=== PATIENT | male | born 1955 | race African-American/Black ===

== ENCOUNTER 2018-07-02 14:49 | Inpatient (IN) | payer OTHER ==
[~2018-07-02] VITALS: Ht 175.3 cm; Wt 77.1 kg
[2018-07-02] MEDS ORDERED: SODIUM CHLORIDE 0.9% 1000ML BAG (SEPSIS BOLUS) IV ONE (15:00)
[2018-07-02 15:25] LABS: BG BASE EXCESS -4.6 mmol/L (-2.0-2.0); BG CARBOXYHEMOGLOBIN 0.7 % (0.5-1.5); BG DEOXYHEMOGLOBIN 4.8 % (0.0-5.0); BG FRACTION INSPIRED OXYGEN 21; BG HCO3 ACT 17.8 mmol/L (22.0-26.0); BG METHEMOGLOBIN 0.3 % (0.0-1.5); BG OXYGEN SATURATION 95.2 % (92.0-98.5); BG OXYHEMOGLOBIN 94.2 % (94.0-97.0); BG PCO2 25.5 mmHg (35.0-45.0); BG PH 7.461 (7.350-7.450); BG PO2 75.2 mmHg (75.0-100.0); BG SAMPLE SITE LEFT RADIAL; BG TOTAL HEMOGLOBIN 12.2 g/dL (12.0-18.0); BG VENT MODE ROOM AIR
[2018-07-02] MEDS ORDERED: ACETAMINOPHEN 650MG SUPP PR ONE (15:30)
[2018-07-02 15:41] LABS: HEMATOCRIT. 36.5 % (42.0-52.0); HEMOGLOBIN. 12.1 g/dL (14.0-18.0); MEAN CORPUSCULAR VOLUME 90.3 fL (80.0-94.0); MEAN PLATELET VOLUME 7.4 fl (7.4-10.4); PLATELET 221 x1000/uL (130-400); RED BLOOD CELL COUNT 4.05 mill/uL (4.7-6.1); RED CELL DISTRIBUTION WIDTH 12.3 % (11.6-14.6)
[2018-07-02 15:48] LABS: PROTHROMBIN TIME 10.3 sec (9.1-11.1)
[2018-07-02 15:49] LABS: CHLORIDE 100 mEq/L (98-107)
[2018-07-02] MEDS ORDERED: VANCOMYCIN 1 G PREMIX 200 ML IV ONE (16:00)
[2018-07-02] MEDS ORDERED: PIPERACILLIN/TAZ 3.375G PREMIX 50 ML IV ONE (16:00)
[2018-07-02 16:15] LABS: PLATELET ESTIMATE NORMAL
[2018-07-02 16:16] LABS: CLARITY URINE CLEAR (CLEAR); COLOR URINE YELLOW (YELLOW); KETONES URINE TRACE (NEGATIVE); LEUKOCYTE ESTERASE URINE NEGATIVE (NEGATIVE); NITRITE URINE NEGATIVE (NEGATIVE); OCCULT BLOOD URINE NEGATIVE (NEGATIVE); PH URINE 5.5 (4.5-8.0); PROTEIN URINE NEGATIVE (NEGATIVE); SPECIFIC GRAVITY URINE 1.026 (1.005-1.030); UROBILINOGEN URINE 0.2 E.U./dL (0.2-1.0)
[2018-07-02] MEDS ORDERED: SODIUM CHLORIDE 0.9% 1,000 ML IV ONE (20:35)
[2018-07-02 23:00] VITALS: BP 152/78
[2018-07-02] MEDS ORDERED: GUAIFENESIN 200MG/10ML SUGAR FREE UDC PO PRN (23:30)
[2018-07-02] MEDS ORDERED: ONDANSETRON HCL 4MG/2ML INJ IV PRN (23:30)
[2018-07-02] MEDS ORDERED: ACETAMINOPHEN 650MG/20.3ML UDC GT PRN (23:30)
[2018-07-02] MEDS ORDERED: HYDROCODONE/ACETAMINOPHEN 10/325MG TABLET PO PRN (23:30)
[2018-07-02] MEDS ORDERED: MAGNESIUM/ALUMINUM HYDROXIDE/SIMETHICONE 30ML UDC PO PRN (23:30)
[2018-07-02] MEDS ORDERED: ACETAMINOPHEN 650MG SUPP PR PRN (23:30)
[2018-07-02] MEDS ORDERED: NA PHOS,M-B/NA PHOS,DI-BA ENEMA 118ML PR PRN (23:30)
[2018-07-02] MEDS ORDERED: CLONIDINE 0.1MG TABLET PO PRN (23:30)
[2018-07-02] MEDS ORDERED: IPRATROPIUM/ALBUTEROL 0.5-3(2.5)MG/3ML NEB INH PRN (23:30)
[2018-07-02] MEDS ORDERED: ACETAMINOPHEN 325MG TABLET PO PRN (23:30)
[2018-07-02] MEDS ORDERED: HYDROCODONE/ACETAMINOPHEN 5/325MG TABLET PO PRN (23:30)
[2018-07-02] MEDS ORDERED: DOCUSATE SODIUM 100MG CAPSULE PO PRN (23:30)
[2018-07-02] MEDS ORDERED: DIPHENHYDRAMINE 50MG/ML VIAL IV PRN (23:30)
[2018-07-02 23:36] VITALS: BP 163/90
[2018-07-02] MEDS ORDERED: SPIR25TA6 MT (23:36)
[2018-07-02] MEDS ORDERED: HYDR-4133 MT ×2 (23:36)
[2018-07-02] MEDS ORDERED: POTA10TA2 MT (23:36)
[2018-07-02] MEDS ORDERED: LEVO25TA7 MT (23:36)
[2018-07-02] MEDS ORDERED: METO25TA6 MT (23:36)
[2018-07-02] MEDS ORDERED: CARB1TAB9 MT (23:36)
[2018-07-02 23:59] VITALS: BP 152/78
[2018-07-02] MEDS ORDERED: CEFTRIAXONE 1 G PREMIX 50 ML IV SCH (23:59)
[2018-07-03] VITALS (10 sets, daily range): BP systolic 126–186; BP diastolic 63–98
[2018-07-03] MEDS: ENOXAPARIN 40MG/0.4ML SYR SUBCUT SCH ×2 (00:37→20:16)
[2018-07-03] MEDS: AZITHROMYCIN 500 MG in DEXT 5% WATER 250 ML IV SCH ×2 (00:58→21:17)
[2018-07-03] MEDS: IPRATROPIUM/ALBUTEROL 0.5-3(2.5)MG/3ML NEB INH SCH ×4 (02:11→21:30)
[2018-07-03] MEDS: SODIUM CHLORIDE 0.9% INJ 3ML FLUSH IVF SCH ×3 (05:18→21:18)
[2018-07-03 06:57] LABS: HEMOGLOBIN. 11.9 g/dL (14.0-18.0); MEAN CORPUSCULAR HEMOGLOBIN 30.7 pg (28.0-32.0); MEAN CORPUSCULAR VOLUME 90.8 fL (80.0-94.0); MEAN PLATELET VOLUME 7.5 fl (7.4-10.4); PLATELET 188 x1000/uL (130-400); RED BLOOD CELL COUNT 3.86 mill/uL (4.7-6.1); RED CELL DISTRIBUTION WIDTH 12.3 % (11.6-14.6)
[2018-07-03 07:24] LABS: CHLORIDE 104 mEq/L (98-107)
[2018-07-03 07:54] LABS: LDL CHOLESTEROL 29 mg/dL (5-100)
[2018-07-03 07:55] LABS: HDL CHOLESTEROL 48 mg/dL (40-59)
[2018-07-03 08:26] LABS: CLARITY URINE TURBID (CLEAR); COLOR URINE DARK YELLOW (YELLOW); KETONES URINE 1+ (NEGATIVE); LEUKOCYTE ESTERASE URINE NEGATIVE (NEGATIVE); NITRITE URINE NEGATIVE (NEGATIVE); OCCULT BLOOD URINE TRACE (NEGATIVE); PROTEIN URINE 1+ (NEGATIVE); SPECIFIC GRAVITY URINE 1.038 (1.005-1.030); UROBILINOGEN URINE 0.2 E.U./dL (0.2-1.0)
[2018-07-03 09:10] LABS: *BARBITURATES SCREEN URINE NEGATIVE (NEGATIVE)
[2018-07-03 09:11] LABS: *AMPHETAMINES SCREEN URINE NEGATIVE (NEGATIVE); *BENZODIAZEPINES SCREEN URINE NEGATIVE (NEGATIVE); *COCAINE SCREEN URINE NEGATIVE (NEGATIVE)
[2018-07-03 09:14] LABS: CANNABINOID URINE SCREEN PRESUMTIVE POSITIVE (NEGATIVE); METHADONE URINE SCREEN NEGATIVE (NEGATIVE); OPIATES URINE SCREEN NEGATIVE (NEGATIVE); PHENCYCLIDINE URINE SCREEN NEGATIVE (NEGATIVE)
[2018-07-03] MEDS ORDERED: PIPE3.376 IV (14:30)
[2018-07-03] MEDS ORDERED: VANCOMYCIN 1 G PREMIX 200 ML IV SCH (16:00)
[2018-07-03] MEDS: PIPERACILLIN/TAZ 3.375G PREMIX 50 ML IV SCH ×2 (17:44→20:16)
[2018-07-03] MEDS ORDERED: LEVO137T2 MT (19:35)
[2018-07-03 20:21] LABS: PLATELET ESTIMATE NORMAL
[2018-07-03] MEDS ORDERED: CARBIDOPA/LEVODOPA 25/100MG TABLET PO SCH (22:00)
[2018-07-04] MEDS ORDERED: LEVOTHYROXINE SODIUM 137MCG TABLET PO SCH (07:30)
== END 2018-07-03 23:43 | disposition short-term general hospital (02) | DRG 871 ==
LOC: ER 14:49 → 5EST 18:24 → EDBEDREQTM 18:26 → EDBEDREQ 18:26 → ENRESERV 20:22
PROVIDERS: ADMIT Family Medicine; ATTEND Family Medicine
DX: A41.50 Gram-negative sepsis, unspecified (principal); J18.9 Pneumonia, unspecified organism; J44.0 Chronic obstructive pulmonary disease with (acute) lower respiratory infection; I10 Essential (primary) hypertension; E11.65 Type 2 diabetes mellitus with hyperglycemia; G20 Parkinson's disease; K40.90 Unilateral inguinal hernia, without obstruction or gangrene, not specified as recurrent; K44.9 Diaphragmatic hernia without obstruction or gangrene; N40.0 Benign prostatic hyperplasia without lower urinary tract symptoms; K76.0 Fatty (change of) liver, not elsewhere classified
CPT/HCPCS: 36415; 36600; 71045; 74176; 80061; 80305; 82375; 82805; 82962; 83605; 84145; 84484; 87077; 87186; 87804; 93005; 94640; 96361; 96365; 96367; 99291; J0456; J0696; J1650; J2543; J3370; J7030; J7050; J7060; J7620; A4315

== ENCOUNTER 2021-01-15 10:29 | Inpatient (IN) | payer MEDICARE, OTHER ==
[~2021-01-15] VITALS: Ht 167.6 cm; Wt 66.2 kg
[~2021-01-15 10:29] MED LIST: CARB1TAB9 MT; HYDR-4133 MT; LEVO137T2 MT; METO25TA6 MT; PIPE3.376 IV; POTA10TA2 MT; SPIR25TA6 MT
[2021-01-15] MEDS ORDERED: VANCOMYCIN 1 G PREMIX 200 ML IV ONE (11:00)
[2021-01-15] MEDS ORDERED: CEFTRIAXONE 1 G PREMIX 50 ML IV ONE ×2 (11:00)
[2021-01-15] MEDS ORDERED: SODIUM CHLORIDE 0.9% 1000ML BAG (SEPSIS BOLUS) IV ONE (11:00)
[2021-01-15] MEDS ORDERED: VANCOMYCIN 1 G PREMIX 200 ML IV SCH (11:00)
[2021-01-15 12:02] LABS: HEMATOCRIT. 26.9 % (42.0-52.0); HEMOGLOBIN. 9.2 g/dL (14.0-18.0); MEAN CORPUSCULAR HEMOGLOBIN 30.4 pg (28.0-32.0); MEAN CORPUSCULAR VOLUME 88.9 fL (80.0-94.0); MEAN PLATELET VOLUME 6.9 fl (7.4-10.4); PLATELET 236 x1000/uL (130-400); RED BLOOD CELL COUNT 3.02 mill/uL (4.7-6.1); RED CELL DISTRIBUTION WIDTH 14.8 % (11.6-14.6)
[2021-01-15 12:09] LABS: INR 1.1; PROTHROMBIN TIME 12.1 sec (9.6-11.0)
[2021-01-15 12:11] LABS: CHLORIDE 113 mEq/L (98-107)
[2021-01-15 12:33] LABS: BG BASE EXCESS -5.7 mmol/L (-2.0-2.0); BG CARBOXYHEMOGLOBIN 0.3 % (0.5-1.5); BG DEOXYHEMOGLOBIN 4.9 % (0.0-5.0); BG FRACTION INSPIRED OXYGEN 36; BG HCO3 ACT 19.9 mmol/L (22.0-26.0); BG METHEMOGLOBIN 0.3 % (0.0-1.5); BG OXYGEN SATURATION 95.1 % (92.0-98.5); BG OXYHEMOGLOBIN 94.5 % (94.0-97.0); BG PH 7.325 (7.350-7.450); BG PO2 86.8 mmHg (75.0-100.0); BG SAMPLE SITE RIGHT RADIAL; BG TOTAL HEMOGLOBIN 9.2 g/dL (12.0-18.0); BG VENT MODE NASAL CANNULA
[2021-01-15 13:06] LABS: PLATELET ESTIMATE NORMAL
[2021-01-15 17:06] LABS: CLARITY URINE CLEAR (CLEAR); COLOR URINE YELLOW (YELLOW); KETONES URINE NEGATIVE (NEGATIVE); LEUKOCYTE ESTERASE URINE NEGATIVE (NEGATIVE); NITRITE URINE NEGATIVE (NEGATIVE); OCCULT BLOOD URINE NEGATIVE (NEGATIVE); PH URINE 5.5 (4.5-8.0); PROTEIN URINE NEGATIVE (NEGATIVE); SPECIFIC GRAVITY URINE 1.015 (1.005-1.030); UROBILINOGEN URINE 0.2 E.U./dL (0.2-1.0)
[2021-01-15] MEDS ORDERED: ZOLPIDEM TARTRATE 5MG TABLET PO PRN (18:45)
[2021-01-15] MEDS ORDERED: MAGNESIUM/ALUMINUM HYDROXIDE/SIMETHICONE 30ML UDC PO PRN (18:45)
[2021-01-15] MEDS ORDERED: NOREPINEPHRINE 8 MG in DEXT 5% WATER 242 ML IV PRN (18:45)
[2021-01-15] MEDS ORDERED: ALBUTEROL 6.7GM HFA INHALER ORI PRN (18:45)
[2021-01-15] MEDS ORDERED: NITROGLYCERIN 0.4MG TABLET SL SL PRN (18:45)
[2021-01-15] MEDS ORDERED: NA PHOS,M-B/NA PHOS,DI-BA ENEMA 118ML PR PRN (18:45)
[2021-01-15] MEDS ORDERED: TRAMADOL 50MG TABLET PO PRN (18:45)
[2021-01-15] MEDS ORDERED: ACETAMINOPHEN 325MG TABLET PO PRN (18:45)
[2021-01-15] MEDS ORDERED: PIPERACILLIN/TAZ 3.375G PREMIX 50 ML IV NR (19:00)
[2021-01-15] MEDS ORDERED: DEXTROSE 50% WATER 50ML SYRINGE IV PRN (19:30)
[2021-01-15 19:35] LABS: T4 FREE 1.08 ng/dL (0.76-1.46)
[2021-01-15 19:46] LABS: FOLIC ACID (FOLATE) SERUM 13.1 ng/mL (>5.38)
[2021-01-15] MEDS: ENOXAPARIN 80MG/0.8ML SYR SUBCUT SCH (19:59)
[2021-01-15] MEDS: METOPROLOL TARTRATE 25MG TABLET PO SCH (21:00)
[2021-01-15] MEDS: INSULIN LISPRO 100 UNITS/ML SUBCUT SCH (21:00)
[2021-01-15] MEDS: FAMOTIDINE 20MG TABLET PO SCH (21:00)
[2021-01-15] MEDS: ASCORBIC ACID 500 MG TABLET PO SCH (21:00)
[2021-01-15] MEDS: BLOOD SUGAR DIAGNOSTIC STRIP TEST SCH (21:00)
[2021-01-15] MEDS: PIPERACILLIN/TAZOBACTAM 3.375G in DEXT 5% WATER 50ML IV SCH (22:54)
[2021-01-16 00:27] VITALS: BP 118/79
[2021-01-16] MEDS: ALBUTEROL 6.7GM HFA INHALER ORI SCH ×6 (02:01→21:21)
[2021-01-16] MEDS ORDERED: VANCOMYCIN 750 MG PREMIX 150 ML IV SCH (02:30)
[2021-01-16 02:48] LABS: CREATINE KINASE MB FRACTION 6.9 ng/mL (0.5-3.6)
[2021-01-16 04:00] VITALS: BP 116/74
[2021-01-16] MEDS: METOPROLOL TARTRATE 25MG TABLET PO SCH (04:29)
[2021-01-16] MEDS: ASCORBIC ACID 500 MG TABLET PO SCH ×3 (04:29→20:56)
[2021-01-16] MEDS: FAMOTIDINE 20MG TABLET PO SCH ×3 (04:29→20:56)
[2021-01-16] MEDS: ENOXAPARIN 80MG/0.8ML SYR SUBCUT SCH ×2 (06:27→17:30)
[2021-01-16] MEDS: PIPERACILLIN/TAZOBACTAM 3.375G in DEXT 5% WATER 50ML IV SCH ×2 (06:28→15:11)
[2021-01-16] MEDS: BLOOD SUGAR DIAGNOSTIC STRIP TEST SCH ×4 (06:34→20:58)
[2021-01-16 06:51] LABS: CHLORIDE 113 mEq/L (98-107)
[2021-01-16 06:57] LABS: PHOSPHORUS 2.5 mg/dL (2.5-4.9)
[2021-01-16 06:58] LABS: HEMATOCRIT. 29.6 % (42.0-52.0); HEMOGLOBIN. 9.8 g/dL (14.0-18.0); MEAN CORPUSCULAR HEMOGLOBIN 29.6 pg (28.0-32.0); MEAN CORPUSCULAR VOLUME 88.9 fL (80.0-94.0); MEAN PLATELET VOLUME 7.4 fl (7.4-10.4); PLATELET 229 x1000/uL (130-400); RED BLOOD CELL COUNT 3.33 mill/uL (4.7-6.1); RED CELL DISTRIBUTION WIDTH 15.2 % (11.6-14.6)
[2021-01-16 06:59] LABS: CREATINE KINASE 162 IU/L (39-308)
[2021-01-16 07:02] LABS: CREATINE KINASE MB FRACTION 9.8 ng/mL (0.5-3.6)
[2021-01-16] MEDS: INSULIN LISPRO 100 UNITS/ML SUBCUT SCH ×4 (08:10→20:58)
[2021-01-16] MEDS ORDERED: ASPIRIN 325MG EC TABLET PO SCH (09:00)
[2021-01-16] MEDS: CHOLECALCIFEROL (D3) 1000 UNIT TABLET PO SCH (09:56)
[2021-01-16] MEDS: LEVOTHYROXINE SODIUM 137MCG TABLET PO SCH (09:56)
[2021-01-16] MEDS: ASPIRIN 81MG EC TABLET PO SCH (09:57)
[2021-01-16] MEDS: ZINC SULFATE 220 MG ( 50 ) CAPSULE PO SCH (09:57)
[2021-01-16 12:00] VITALS: BP 135/75
[2021-01-16 16:00] VITALS: BP 128/70
[2021-01-16 17:28] LABS: PLATELET ESTIMATE NORMAL
[2021-01-16] MEDS: VANCOMYCIN 750 MG PREMIX 150 ML IV SCH (17:56)
[2021-01-16 20:00] VITALS: BP 146/99
[2021-01-16 21:51] LABS: HEMATOCRIT 25.8 % (42.0-52.0); HEMOGLOBIN 8.8 g/dL (14.0-18.0)
[2021-01-17] VITALS (9 sets, daily range): BP systolic 138–186; BP diastolic 76–103
[2021-01-17] MEDS: ALBUTEROL 6.7GM HFA INHALER ORI SCH (01:11)
[2021-01-17] MEDS: CLONIDINE 0.1MG TABLET PO PRN ×3 (03:56→18:10)
[2021-01-17] MEDS: MORPHINE SULFATE 2 MG/ML CPJ (NOT FOR IM USE) IV PRN ×2 (05:23→10:31)
[2021-01-17] MEDS: VANCOMYCIN 750 MG PREMIX 150 ML IV SCH ×2 (06:26→22:45)
[2021-01-17] MEDS: ENOXAPARIN 80MG/0.8ML SYR SUBCUT SCH ×2 (07:00→18:10)
[2021-01-17] MEDS: BLOOD SUGAR DIAGNOSTIC STRIP TEST SCH ×4 (07:06→21:00)
[2021-01-17 07:58] LABS: CHLORIDE 117 mEq/L (98-107)
[2021-01-17] MEDS: INSULIN LISPRO 100 UNITS/ML SUBCUT SCH ×4 (08:10→21:00)
[2021-01-17 08:14] LABS: VANCOMYCIN TROUGH 15.3 ug/mL (5.0-10.0)
[2021-01-17] MEDS: ASCORBIC ACID 500 MG TABLET PO SCH ×2 (10:14→22:47)
[2021-01-17] MEDS: CHOLECALCIFEROL (D3) 1000 UNIT TABLET PO SCH (10:14)
[2021-01-17] MEDS: ASPIRIN 81MG EC TABLET PO SCH (10:14)
[2021-01-17] MEDS: ZINC SULFATE 220 MG ( 50 ) CAPSULE PO SCH (10:15)
[2021-01-17] MEDS: LEVOTHYROXINE SODIUM 137MCG TABLET PO SCH (10:15)
[2021-01-17] MEDS: FAMOTIDINE 20MG TABLET PO SCH ×2 (10:15→22:47)
[2021-01-17] MEDS: PIPERACILLIN/TAZOBACTAM 3.375G in DEXT 5% WATER 50ML IV SCH ×3 (10:20→22:45)
[2021-01-17] MEDS ORDERED: KCL 20MEQ/100ML PREMIX 100 ML IV NR (12:30)
[2021-01-17] MEDS ORDERED: IOHEXOL-350 100 ML BOTTLE ONE (13:41)
[2021-01-17] MEDS ORDERED: NALOXONE HCL 0.4MG/ML VIAL IV PRN (15:15)
[2021-01-17] MEDS ORDERED: FUROSEMIDE 40MG/4ML VIAL IVP NR (17:45)
[2021-01-18] VITALS (58 sets, daily range): BP systolic 78–170; BP diastolic 58–98
[2021-01-18] MEDS: CLONIDINE 0.1MG TABLET PO PRN ×3 (00:04→17:29)
[2021-01-18] MEDS: PIPERACILLIN/TAZOBACTAM 3.375G in DEXT 5% WATER 50ML IV SCH ×4 (05:14→21:43)
[2021-01-18] MEDS: VANCOMYCIN 750 MG PREMIX 150 ML IV SCH ×2 (06:28→18:00)
[2021-01-18] MEDS: ENOXAPARIN 80MG/0.8ML SYR SUBCUT SCH ×2 (07:00→14:47)
[2021-01-18 07:22] LABS: BASOPHILS % 0.3 % (0.0-2.0); EOSINOPHILS % 2.1 % (0.0-5.0); HEMATOCRIT. 29.8 % (42.0-52.0); HEMOGLOBIN. 9.8 g/dL (14.0-18.0); LYMPHOCYTES % 9.6 % (20.0-50.0); MEAN CORPUSCULAR HEMOGLOBIN 29.2 pg (28.0-32.0); MEAN CORPUSCULAR VOLUME 89.2 fL (80.0-94.0); MEAN PLATELET VOLUME 7.7 fl (7.4-10.4); MONOCYTES % 7.9 % (2.0-8.0); NEUTROPHILS % 80.1 % (40.0-76.0); PLATELET 242 x1000/uL (130-400); RED BLOOD CELL COUNT 3.35 mill/uL (4.7-6.1)
[2021-01-18] MEDS ORDERED: ETOMIDATE 2MG/ML 10ML VIAL IV ONE (07:30)
[2021-01-18] MEDS: LEVOTHYROXINE SODIUM 137MCG TABLET PO SCH (07:30)
[2021-01-18] MEDS ORDERED: VECURONIUM BROMIDE 10 MG/VIAL IV ONE (07:30)
[2021-01-18 07:35] LABS: CHLORIDE 113 mEq/L (98-107)
[2021-01-18] MEDS: BLOOD SUGAR DIAGNOSTIC STRIP TEST SCH ×4 (07:45→20:27)
[2021-01-18 07:48] LABS: PHOSPHORUS 2.4 mg/dL (2.5-4.9)
[2021-01-18] MEDS: INSULIN LISPRO 100 UNITS/ML SUBCUT SCH ×4 (07:54→20:27)
[2021-01-18] MEDS: CHOLECALCIFEROL (D3) 1000 UNIT TABLET PO SCH (08:32)
[2021-01-18] MEDS: FAMOTIDINE 20MG TABLET PO SCH ×2 (08:32→20:31)
[2021-01-18] MEDS: ASPIRIN 81MG EC TABLET PO SCH (08:32)
[2021-01-18] MEDS: ZINC SULFATE 220 MG ( 50 ) CAPSULE PO SCH (08:32)
[2021-01-18] MEDS: ASCORBIC ACID 500 MG TABLET PO SCH ×2 (08:32→20:30)
[2021-01-18] MEDS ORDERED: NOREPINEPHRINE 32 MG in DEXT 5% WATER 218 ML IV PRN (10:15)
[2021-01-18] MEDS ORDERED: SODIUM CHLORIDE 0.9% 500 ML IV STA (10:24)
[2021-01-18 10:44] LABS: BG BASE EXCESS -2.7 mmol/L (-2.0-2.0); BG CARBOXYHEMOGLOBIN 0.3 % (0.5-1.5); BG DEOXYHEMOGLOBIN 4.1 % (0.0-5.0); BG FRACTION INSPIRED OXYGEN 100; BG HCO3 ACT 24.1 mmol/L (22.0-26.0); BG METHEMOGLOBIN 0.3 % (0.0-1.5); BG OXYGEN SATURATION 95.9 % (92.0-98.5); BG OXYHEMOGLOBIN 95.3 % (94.0-97.0); BG PCO2 51.6 mmHg (35.0-45.0); BG PH 7.287 (7.350-7.450); BG PO2 95.9 mmHg (75.0-100.0); BG SAMPLE SITE RIGHT RADIAL; BG TOTAL HEMOGLOBIN 9.7 g/dL (12.0-18.0); BG VENT MODE VENT - AC/VC
[2021-01-18] MEDS ORDERED: PROPOFOL 10MG/ML 100ML 100 ML IV PRN (10:45)
[2021-01-18] MEDS: IPRATROPIUM/ALBUTEROL 0.5-3(2.5)MG/3ML NEB HHN SCH ×2 (16:07→21:26)
[2021-01-18] MEDS: ACETYLCYSTEINE 100MG/ML 10% VIAL 4ML INH SCH (16:07)
[2021-01-19] VITALS (101 sets, daily range): BP systolic 62–149; BP diastolic 42–88
[2021-01-19] MEDS: ACETYLCYSTEINE 100MG/ML 10% VIAL 4ML INH SCH ×3 (01:19→14:14)
[2021-01-19] MEDS: IPRATROPIUM/ALBUTEROL 0.5-3(2.5)MG/3ML NEB HHN SCH ×6 (01:20→20:09)
[2021-01-19] MEDS: PIPERACILLIN/TAZOBACTAM 3.375G in DEXT 5% WATER 50ML IV SCH ×2 (04:27→09:12)
[2021-01-19] MEDS ORDERED: SODIUM CHLORIDE 0.9% 500 ML IV ONE (04:45)
[2021-01-19] MEDS ORDERED: PHENYLEPHRINE 100 MG in DEXT 5% WATER 240 ML IV PRN (04:45)
[2021-01-19 05:09] LABS: HEMATOCRIT. 22.2 % (42.0-52.0); MEAN CORPUSCULAR HEMOGLOBIN 29.9 pg (28.0-32.0); MEAN PLATELET VOLUME 7.7 fl (7.4-10.4); PLATELET 247 x1000/uL (130-400); RED BLOOD CELL COUNT 2.34 mill/uL (4.7-6.1); RED CELL DISTRIBUTION WIDTH 15.4 % (11.6-14.6)
[2021-01-19 05:11] LABS: CHLORIDE 110 mEq/L (98-107)
[2021-01-19] MEDS: INSULIN LISPRO 100 UNITS/ML SUBCUT SCH ×4 (05:46→21:49)
[2021-01-19] MEDS: BLOOD SUGAR DIAGNOSTIC STRIP TEST SCH ×4 (05:49→21:23)
[2021-01-19] MEDS: VANCOMYCIN 750 MG PREMIX 150 ML IV SCH (05:49)
[2021-01-19] MEDS: ENOXAPARIN 80MG/0.8ML SYR SUBCUT SCH (06:42)
[2021-01-19] MEDS: ASPIRIN 81MG EC TABLET PO SCH (09:13)
[2021-01-19] MEDS: ZINC SULFATE 220 MG ( 50 ) CAPSULE PO SCH (09:13)
[2021-01-19] MEDS: FAMOTIDINE 20MG TABLET PO SCH ×2 (09:13→21:23)
[2021-01-19] MEDS: CHOLECALCIFEROL (D3) 1000 UNIT TABLET PO SCH (09:13)
[2021-01-19] MEDS: ASCORBIC ACID 500 MG TABLET PO SCH ×2 (09:13→21:22)
[2021-01-19] MEDS: DEXT 5%/0.45% NACL 1000ML 1,000 ML IV SCH (09:13)
[2021-01-19] MEDS: LEVOTHYROXINE SODIUM 137MCG TABLET PO SCH (09:13)
[2021-01-19] MEDS ORDERED: POTASSIUM CHLORIDE 20MEQ/PACKET PO NR (09:15)
[2021-01-19 09:32] LABS: BG CARBOXYHEMOGLOBIN 0.3 % (0.5-1.5); BG DEOXYHEMOGLOBIN 0.8 % (0.0-5.0); BG HCO3 ACT 20.6 mmol/L (22.0-26.0); BG METHEMOGLOBIN 0.4 % (0.0-1.5); BG OXYGEN SATURATION 99.2 % (92.0-98.5); BG OXYHEMOGLOBIN 98.5 % (94.0-97.0); BG PCO2 40.5 mmHg (35.0-45.0); BG PH 7.324 (7.350-7.450); BG PO2 457.5 mmHg (75.0-100.0); BG SAMPLE SITE LEFT RADIAL; BG TOTAL HEMOGLOBIN 9.1 g/dL (12.0-18.0); BG VENT MODE VENT - AC
[2021-01-19] MEDS: FENTANYL CITRATE/PF 2,500 MCG in SODIUM CHLORIDE 0.9% 200 ML IV PRN (10:05)
[2021-01-19 10:51] LABS: INR 1.1; PROTHROMBIN TIME 11.8 sec (9.6-11.0)
[2021-01-19 13:59] LABS: PLATELET ESTIMATE NORMAL
[2021-01-19] MEDS: MEROPENEM 1,000 MG in SODIUM CHLORIDE 0.9% 100 ML IV SCH (14:57)
[2021-01-19] MEDS ORDERED: NIFE-72 PO (16:47)
[2021-01-19] MEDS ORDERED: VANCOMYCIN 1 G PREMIX 200 ML IV SCH (21:00)
[2021-01-20] VITALS (89 sets, daily range): BP systolic 117–172; BP diastolic 64–95
[2021-01-20] MEDS: IPRATROPIUM/ALBUTEROL 0.5-3(2.5)MG/3ML NEB HHN SCH ×6 (00:18→21:08)
[2021-01-20] MEDS: ACETYLCYSTEINE 100MG/ML 10% VIAL 4ML INH SCH ×3 (00:18→16:33)
[2021-01-20] MEDS: MEROPENEM 1,000 MG in SODIUM CHLORIDE 0.9% 100 ML IV SCH ×3 (01:16→21:05)
[2021-01-20] MEDS: FENTANYL CITRATE/PF 2,500 MCG in SODIUM CHLORIDE 0.9% 200 ML IV PRN ×2 (04:03→22:49)
[2021-01-20] MEDS: DEXT 5%/0.45% NACL 1000ML 1,000 ML IV SCH ×2 (04:04→17:40)
[2021-01-20 05:43] LABS: CHLORIDE 114 mEq/L (98-107)
[2021-01-20 05:47] LABS: HEMATOCRIT. 25.6 % (42.0-52.0); HEMOGLOBIN. 8.6 g/dL (14.0-18.0); MEAN CORPUSCULAR HEMOGLOBIN 29.5 pg (28.0-32.0); MEAN CORPUSCULAR VOLUME 87.5 fL (80.0-94.0); MEAN PLATELET VOLUME 7.5 fl (7.4-10.4); PLATELET 206 x1000/uL (130-400); RED BLOOD CELL COUNT 2.92 mill/uL (4.7-6.1); RED CELL DISTRIBUTION WIDTH 15.3 % (11.6-14.6)
[2021-01-20] MEDS: LEVOTHYROXINE SODIUM 137MCG TABLET PO SCH (07:05)
[2021-01-20] MEDS: BLOOD SUGAR DIAGNOSTIC STRIP TEST SCH ×4 (07:07→21:18)
[2021-01-20] MEDS: INSULIN LISPRO 100 UNITS/ML SUBCUT SCH ×4 (07:07→21:06)
[2021-01-20] MEDS: CHOLECALCIFEROL (D3) 1000 UNIT TABLET PO SCH (08:49)
[2021-01-20] MEDS: ASCORBIC ACID 500 MG TABLET PO SCH ×2 (08:49→21:05)
[2021-01-20] MEDS: FAMOTIDINE 20MG TABLET PO SCH ×2 (08:49→21:05)
[2021-01-20] MEDS: ZINC SULFATE 220 MG ( 50 ) CAPSULE PO SCH (08:49)
[2021-01-20 09:30] LABS: BG BASE EXCESS -3.6 mmol/L (-2.0-2.0); BG CARBOXYHEMOGLOBIN 0.2 % (0.5-1.5); BG DEOXYHEMOGLOBIN 2.4 % (0.0-5.0); BG FRACTION INSPIRED OXYGEN 40; BG HCO3 ACT 22.2 mmol/L (22.0-26.0); BG METHEMOGLOBIN 0.2 % (0.0-1.5); BG OXYGEN SATURATION 97.6 % (92.0-98.5); BG OXYHEMOGLOBIN 97.2 % (94.0-97.0); BG PO2 107.3 mmHg (75.0-100.0); BG SAMPLE SITE RIGHT RADIAL; BG TOTAL HEMOGLOBIN 10.3 g/dL (12.0-18.0); BG VENT MODE VENT - AC
[2021-01-20 11:31] LABS: PLATELET ESTIMATE NORMAL
[2021-01-20] MEDS: CLONIDINE 0.1MG TABLET PO PRN (11:59)
[2021-01-20] MEDS: MORPHINE SULFATE 2 MG/ML CPJ (NOT FOR IM USE) IV PRN (14:56)
[2021-01-21] VITALS (97 sets, daily range): BP systolic 117–179; BP diastolic 66–97
[2021-01-21] MEDS: IPRATROPIUM/ALBUTEROL 0.5-3(2.5)MG/3ML NEB HHN SCH ×6 (00:27→20:32)
[2021-01-21] MEDS: ACETYLCYSTEINE 100MG/ML 10% VIAL 4ML INH SCH ×3 (00:27→16:50)
[2021-01-21] MEDS: LEVOTHYROXINE SODIUM 137MCG TABLET PO SCH (06:04)
[2021-01-21] MEDS: INSULIN LISPRO 100 UNITS/ML SUBCUT SCH ×4 (06:05→21:00)
[2021-01-21] MEDS: CLONIDINE 0.1MG TABLET PO PRN ×2 (06:07→16:54)
[2021-01-21] MEDS: BLOOD SUGAR DIAGNOSTIC STRIP TEST SCH ×4 (06:07→21:47)
[2021-01-21] MEDS: ASCORBIC ACID 500 MG TABLET PO SCH ×2 (09:27→20:46)
[2021-01-21] MEDS: CHOLECALCIFEROL (D3) 1000 UNIT TABLET PO SCH (09:27)
[2021-01-21] MEDS: MEROPENEM 1,000 MG in SODIUM CHLORIDE 0.9% 100 ML IV SCH ×2 (09:27→20:50)
[2021-01-21] MEDS: ZINC SULFATE 220 MG ( 50 ) CAPSULE PO SCH (09:27)
[2021-01-21] MEDS: FAMOTIDINE 20MG TABLET PO SCH ×2 (09:27→20:46)
[2021-01-21 10:13] LABS: BG BASE EXCESS -1.4 mmol/L (-2.0-2.0); BG CARBOXYHEMOGLOBIN 0.5 % (0.5-1.5); BG FRACTION INSPIRED OXYGEN 35; BG METHEMOGLOBIN 0.1 % (0.0-1.5); BG OXYHEMOGLOBIN 97.4 % (94.0-97.0); BG PCO2 43.4 mmHg (35.0-45.0); BG PH 7.361 (7.350-7.450); BG PO2 114.1 mmHg (75.0-100.0); BG SAMPLE SITE RIGHT RADIAL; BG TOTAL HEMOGLOBIN 9.3 g/dL (12.0-18.0); BG VENT MODE VENT - AC
[2021-01-21] MEDS: DEXT 5%/0.45% NACL 1000ML 1,000 ML IV SCH (10:20)
[2021-01-21] MEDS: AMLODIPINE 10MG TABLET PO SCH (10:24)
[2021-01-21 10:56] LABS: BASOPHILS % 0.1 % (0.0-2.0); EOSINOPHILS % 3.4 % (0.0-5.0); HEMATOCRIT. 27.7 % (42.0-52.0); HEMOGLOBIN. 9.2 g/dL (14.0-18.0); LYMPHOCYTES % 7.9 % (20.0-50.0); MEAN CORPUSCULAR HEMOGLOBIN 29.6 pg (28.0-32.0); MEAN CORPUSCULAR VOLUME 89.6 fL (80.0-94.0); MEAN PLATELET VOLUME 7.1 fl (7.4-10.4); MONOCYTES % 8.2 % (2.0-8.0); NEUTROPHILS % 80.4 % (40.0-76.0); PLATELET 201 x1000/uL (130-400); RED CELL DISTRIBUTION WIDTH 15.4 % (11.6-14.6)
[2021-01-21 11:03] LABS: CHLORIDE 115 mEq/L (98-107)
[2021-01-21] MEDS: FENTANYL CITRATE/PF 2,500 MCG in SODIUM CHLORIDE 0.9% 200 ML IV PRN (16:47)
[2021-01-21] MEDS ORDERED: VANCOMYCIN 750 MG PREMIX 150 ML IV NR (17:00)
[2021-01-22] VITALS (92 sets, daily range): BP systolic 111–169; BP diastolic 61–90
[2021-01-22] MEDS: IPRATROPIUM/ALBUTEROL 0.5-3(2.5)MG/3ML NEB HHN SCH ×6 (00:17→20:33)
[2021-01-22] MEDS: ACETYLCYSTEINE 100MG/ML 10% VIAL 4ML INH SCH ×4 (00:17→20:32)
[2021-01-22 02:26] LABS: CLARITY URINE CLOUDY (CLEAR); COLOR URINE YELLOW (YELLOW); KETONES URINE NEGATIVE (NEGATIVE); LEUKOCYTE ESTERASE URINE TRACE (NEGATIVE); NITRITE URINE NEGATIVE (NEGATIVE); OCCULT BLOOD URINE 2+ (NEGATIVE); PH URINE 5.5 (4.5-8.0); PROTEIN URINE 2+ (NEGATIVE); SPECIFIC GRAVITY URINE 1.013 (1.005-1.030)
[2021-01-22] MEDS: DEXT 5%/0.45% NACL 1000ML 1,000 ML IV SCH ×2 (05:13→19:22)
[2021-01-22] MEDS: BLOOD SUGAR DIAGNOSTIC STRIP TEST SCH ×4 (05:14→21:38)
[2021-01-22 05:29] LABS: BASOPHILS % 0.3 % (0.0-2.0); HEMATOCRIT. 25.9 % (42.0-52.0); HEMOGLOBIN. 8.9 g/dL (14.0-18.0); LYMPHOCYTES % 15.7 % (20.0-50.0); MEAN CORPUSCULAR HEMOGLOBIN 30.1 pg (28.0-32.0); MEAN CORPUSCULAR VOLUME 87.5 fL (80.0-94.0); MEAN PLATELET VOLUME 7.4 fl (7.4-10.4); PLATELET 207 x1000/uL (130-400); RED BLOOD CELL COUNT 2.96 mill/uL (4.7-6.1); RED CELL DISTRIBUTION WIDTH 14.8 % (11.6-14.6)
[2021-01-22] MEDS: FENTANYL CITRATE/PF 2,500 MCG in SODIUM CHLORIDE 0.9% 200 ML IV PRN ×2 (05:45→19:22)
[2021-01-22 05:48] LABS: CHLORIDE 114 mEq/L (98-107)
[2021-01-22] MEDS: LEVOTHYROXINE SODIUM 137MCG TABLET PO SCH (05:53)
[2021-01-22] MEDS: INSULIN LISPRO 100 UNITS/ML SUBCUT SCH ×4 (06:36→21:41)
[2021-01-22] MEDS ORDERED: LACTULOSE 20G/30ML UDC PO PRN ×2 (08:15→18:30)
[2021-01-22 08:51] LABS: BG BASE EXCESS 0.5 mmol/L (-2.0-2.0); BG CARBOXYHEMOGLOBIN 0.6 % (0.5-1.5); BG DEOXYHEMOGLOBIN 1.9 % (0.0-5.0); BG FRACTION INSPIRED OXYGEN 35; BG HCO3 ACT 24.9 mmol/L (22.0-26.0); BG METHEMOGLOBIN 0.1 % (0.0-1.5); BG OXYGEN SATURATION 98.1 % (92.0-98.5); BG OXYHEMOGLOBIN 97.4 % (94.0-97.0); BG PCO2 39.1 mmHg (35.0-45.0); BG PH 7.422 (7.350-7.450); BG PO2 115.7 mmHg (75.0-100.0); BG SAMPLE SITE RIGHT RADIAL; BG TOTAL HEMOGLOBIN 9.1 g/dL (12.0-18.0); BG VENT MODE VENT - AC
[2021-01-22] MEDS: DOCUSATE SODIUM SUGAR FREE 100MG/10ML UDC NG SCH (08:59)
[2021-01-22] MEDS: ZINC SULFATE 220 MG ( 50 ) CAPSULE PO SCH (09:00)
[2021-01-22] MEDS: AMLODIPINE 10MG TABLET PO SCH (09:00)
[2021-01-22] MEDS ORDERED: LACTULOSE 20G/30ML UDC PO SCH (09:00)
[2021-01-22] MEDS: FAMOTIDINE 20MG TABLET PO SCH ×2 (09:00→20:53)
[2021-01-22] MEDS: MEROPENEM 1,000 MG in SODIUM CHLORIDE 0.9% 100 ML IV SCH ×2 (09:00→20:52)
[2021-01-22] MEDS: ASCORBIC ACID 500 MG TABLET PO SCH ×2 (09:00→20:53)
[2021-01-22] MEDS: CHOLECALCIFEROL (D3) 1000 UNIT TABLET PO SCH (09:01)
[2021-01-22] MEDS ORDERED: VANCOMYCIN 750 MG PREMIX 150 ML IV NR (17:00)
[2021-01-22] MEDS ORDERED: LACTULOSE 20G/30ML UDC PO NR (18:11)
[2021-01-22] MEDS: ENOXAPARIN 80MG/0.8ML SYR SUBCUT SCH (18:18)
[2021-01-22] MEDS: LACTULOSE 20G/30ML UDC PO SCH (21:40)
[2021-01-23] VITALS (53 sets, daily range): BP systolic 107–164; BP diastolic 59–90
[2021-01-23] MEDS: IPRATROPIUM/ALBUTEROL 0.5-3(2.5)MG/3ML NEB HHN SCH ×6 (00:12→21:07)
[2021-01-23] MEDS: LACTULOSE 20G/30ML UDC PO SCH ×3 (05:37→21:34)
[2021-01-23] MEDS: INSULIN LISPRO 100 UNITS/ML SUBCUT SCH ×4 (06:08→21:43)
[2021-01-23] MEDS: BLOOD SUGAR DIAGNOSTIC STRIP TEST SCH ×4 (06:08→21:16)
[2021-01-23] MEDS: LEVOTHYROXINE SODIUM 137MCG TABLET PO SCH (06:12)
[2021-01-23] MEDS: FENTANYL CITRATE/PF 2,500 MCG in SODIUM CHLORIDE 0.9% 200 ML IV PRN (06:13)
[2021-01-23 06:49] LABS: BASOPHILS % 0.3 % (0.0-2.0); EOSINOPHILS % 4.4 % (0.0-5.0); HEMATOCRIT. 27.5 % (42.0-52.0); HEMOGLOBIN. 9.3 g/dL (14.0-18.0); LYMPHOCYTES % 16.4 % (20.0-50.0); MEAN CORPUSCULAR HEMOGLOBIN 29.6 pg (28.0-32.0); MEAN CORPUSCULAR VOLUME 87.8 fL (80.0-94.0); MEAN PLATELET VOLUME 7.6 fl (7.4-10.4); MONOCYTES % 8.4 % (2.0-8.0); NEUTROPHILS % 70.5 % (40.0-76.0); PLATELET 251 x1000/uL (130-400); RED BLOOD CELL COUNT 3.13 mill/uL (4.7-6.1); RED CELL DISTRIBUTION WIDTH 14.6 % (11.6-14.6)
[2021-01-23 06:53] LABS: CHLORIDE 115 mEq/L (98-107)
[2021-01-23] MEDS: ENOXAPARIN 80MG/0.8ML SYR SUBCUT SCH ×2 (07:00→19:48)
[2021-01-23 07:46] LABS: BG BASE EXCESS -0.3 mmol/L (-2.0-2.0); BG CARBOXYHEMOGLOBIN 0.3 % (0.5-1.5); BG DEOXYHEMOGLOBIN 1.9 % (0.0-5.0); BG HCO3 ACT 24.6 mmol/L (22.0-26.0); BG METHEMOGLOBIN 0.3 % (0.0-1.5); BG OXYGEN SATURATION 98.1 % (92.0-98.5); BG OXYHEMOGLOBIN 97.5 % (94.0-97.0); BG PCO2 41.5 mmHg (35.0-45.0); BG PH 7.391 (7.350-7.450); BG PO2 120.7 mmHg (75.0-100.0); BG SAMPLE SITE RIGHT RADIAL; BG TOTAL HEMOGLOBIN 9.7 g/dL (12.0-18.0); BG VENT MODE VENT - AC
[2021-01-23] MEDS: ACETYLCYSTEINE 100MG/ML 10% VIAL 4ML INH SCH (08:39)
[2021-01-23] MEDS: ZINC SULFATE 220 MG ( 50 ) CAPSULE PO SCH (09:09)
[2021-01-23] MEDS: FAMOTIDINE 20MG TABLET PO SCH ×2 (09:09→21:22)
[2021-01-23] MEDS: ASCORBIC ACID 500 MG TABLET PO SCH ×2 (09:09→21:22)
[2021-01-23] MEDS: AMLODIPINE 10MG TABLET PO SCH (09:09)
[2021-01-23] MEDS: CHOLECALCIFEROL (D3) 1000 UNIT TABLET PO SCH (09:09)
[2021-01-23] MEDS: DOCUSATE SODIUM SUGAR FREE 100MG/10ML UDC NG SCH (09:10)
[2021-01-23] MEDS: MEROPENEM 1,000 MG in SODIUM CHLORIDE 0.9% 100 ML IV SCH ×2 (09:20→21:22)
[2021-01-23] MEDS: VANCOMYCIN 1 G PREMIX 200 ML IV SCH (12:00)
[2021-01-23] MEDS: DEXT 5%/0.45% NACL 1000ML 1,000 ML IV SCH (13:15)
[2021-01-23] MEDS: ATORVASTATIN CALCIUM 10MG TABLET PO SCH (21:22)
[2021-01-24] VITALS (73 sets, daily range): BP systolic 103–171; BP diastolic 59–120
[2021-01-24] MEDS: IPRATROPIUM/ALBUTEROL 0.5-3(2.5)MG/3ML NEB HHN SCH ×7 (01:10→23:24)
[2021-01-24] MEDS: FENTANYL CITRATE/PF 2,500 MCG in SODIUM CHLORIDE 0.9% 200 ML IV PRN (03:40)
[2021-01-24] MEDS: DEXT 5%/0.45% NACL 1000ML 1,000 ML IV SCH ×2 (05:32→23:00)
[2021-01-24] MEDS: BLOOD SUGAR DIAGNOSTIC STRIP TEST SCH ×4 (05:32→21:54)
[2021-01-24 05:37] LABS: CHLORIDE 112 mEq/L (98-107)
[2021-01-24 05:44] LABS: BASOPHILS % 0.1 % (0.0-2.0); EOSINOPHILS % 1.7 % (0.0-5.0); HEMATOCRIT. 25.3 % (42.0-52.0); HEMOGLOBIN. 8.5 g/dL (14.0-18.0); MEAN CORPUSCULAR HEMOGLOBIN 29.5 pg (28.0-32.0); MEAN CORPUSCULAR VOLUME 87.9 fL (80.0-94.0); MEAN PLATELET VOLUME 7.6 fl (7.4-10.4); MONOCYTES % 6.1 % (2.0-8.0); NEUTROPHILS % 83.1 % (40.0-76.0); PLATELET 209 x1000/uL (130-400); RED BLOOD CELL COUNT 2.87 mill/uL (4.7-6.1); RED CELL DISTRIBUTION WIDTH 14.2 % (11.6-14.6)
[2021-01-24] MEDS: INSULIN LISPRO 100 UNITS/ML SUBCUT SCH ×4 (05:44→21:00)
[2021-01-24] MEDS: LACTULOSE 20G/30ML UDC PO SCH (05:45)
[2021-01-24] MEDS: LEVOTHYROXINE SODIUM 137MCG TABLET PO SCH (05:54)
[2021-01-24] MEDS: ENOXAPARIN 80MG/0.8ML SYR SUBCUT SCH ×2 (05:58→19:54)
[2021-01-24] MEDS: ACETYLCYSTEINE 100MG/ML 10% VIAL 4ML INH SCH (07:30)
[2021-01-24] MEDS ORDERED: LACTULOSE 20G/30ML UDC PO PRN (08:15)
[2021-01-24 08:45] LABS: BG BASE EXCESS -0.7 mmol/L (-2.0-2.0); BG CARBOXYHEMOGLOBIN 0.3 % (0.5-1.5); BG DEOXYHEMOGLOBIN 1.7 % (0.0-5.0); BG FRACTION INSPIRED OXYGEN 35; BG HCO3 ACT 23.1 mmol/L (22.0-26.0); BG METHEMOGLOBIN 0.3 % (0.0-1.5); BG OXYGEN SATURATION 98.3 % (92.0-98.5); BG OXYHEMOGLOBIN 97.7 % (94.0-97.0); BG PCO2 34.3 mmHg (35.0-45.0); BG PH 7.446 (7.350-7.450); BG PO2 128.9 mmHg (75.0-100.0); BG SAMPLE SITE RIGHT RADIAL; BG TOTAL HEMOGLOBIN 8.4 g/dL (12.0-18.0); BG VENT MODE VENT - SIMV
[2021-01-24] MEDS: DOCUSATE SODIUM SUGAR FREE 100MG/10ML UDC NG SCH (09:21)
[2021-01-24] MEDS: AMLODIPINE 10MG TABLET PO SCH (09:22)
[2021-01-24] MEDS: ZINC SULFATE 220 MG ( 50 ) CAPSULE PO SCH (09:23)
[2021-01-24] MEDS: CHOLECALCIFEROL (D3) 1000 UNIT TABLET PO SCH (09:24)
[2021-01-24] MEDS: FAMOTIDINE 20MG TABLET PO SCH ×2 (09:24→20:56)
[2021-01-24] MEDS: ASCORBIC ACID 500 MG TABLET PO SCH ×2 (09:24→20:57)
[2021-01-24] MEDS: MEROPENEM 1,000 MG in SODIUM CHLORIDE 0.9% 100 ML IV SCH ×2 (09:25→20:56)
[2021-01-24] MEDS: VANCOMYCIN 1 G PREMIX 200 ML IV SCH (12:00)
[2021-01-24] MEDS: ATORVASTATIN CALCIUM 10MG TABLET PO SCH (20:57)
[2021-01-24] MEDS: CLONIDINE 0.1MG TABLET PO PRN (21:58)
[2021-01-25] VITALS (57 sets, daily range): BP systolic 108–168; BP diastolic 61–89
[2021-01-25] MEDS: IPRATROPIUM/ALBUTEROL 0.5-3(2.5)MG/3ML NEB HHN SCH ×5 (04:16→19:40)
[2021-01-25 05:57] LABS: CHLORIDE 109 mEq/L (98-107)
[2021-01-25 06:05] LABS: HEMATOCRIT. 24.1 % (42.0-52.0); HEMOGLOBIN. 8.3 g/dL (14.0-18.0); MEAN CORPUSCULAR HEMOGLOBIN 30.2 pg (28.0-32.0); MEAN CORPUSCULAR VOLUME 87.6 fL (80.0-94.0); MEAN PLATELET VOLUME 8.1 fl (7.4-10.4); PLATELET 215 x1000/uL (130-400); RED BLOOD CELL COUNT 2.75 mill/uL (4.7-6.1); RED CELL DISTRIBUTION WIDTH 14.4 % (11.6-14.6)
[2021-01-25] MEDS: BLOOD SUGAR DIAGNOSTIC STRIP TEST SCH ×4 (06:23→21:38)
[2021-01-25] MEDS: LEVOTHYROXINE SODIUM 137MCG TABLET PO SCH (06:23)
[2021-01-25] MEDS: INSULIN LISPRO 100 UNITS/ML SUBCUT SCH ×4 (06:24→21:45)
[2021-01-25 08:07] LABS: BG CARBOXYHEMOGLOBIN 0.3 % (0.5-1.5); BG DEOXYHEMOGLOBIN 1.4 % (0.0-5.0); BG HCO3 ACT 24.4 mmol/L (22.0-26.0); BG METHEMOGLOBIN 0.3 % (0.0-1.5); BG OXYGEN SATURATION 98.6 % (92.0-98.5); BG PCO2 33.4 mmHg (35.0-45.0); BG PH 7.482 (7.350-7.450); BG PO2 149.9 mmHg (75.0-100.0); BG SAMPLE SITE RIGHT RADIAL; BG TOTAL HEMOGLOBIN 7.6 g/dL (12.0-18.0); BG VENT MODE VENT - SIMV
[2021-01-25] MEDS: ENOXAPARIN 80MG/0.8ML SYR SUBCUT SCH ×2 (08:11→21:17)
[2021-01-25] MEDS: DOCUSATE SODIUM SUGAR FREE 100MG/10ML UDC NG SCH (09:03)
[2021-01-25] MEDS: ASCORBIC ACID 500 MG TABLET PO SCH ×2 (09:04→21:16)
[2021-01-25] MEDS: CHOLECALCIFEROL (D3) 1000 UNIT TABLET PO SCH (09:04)
[2021-01-25] MEDS: AMLODIPINE 10MG TABLET PO SCH (09:04)
[2021-01-25] MEDS: FAMOTIDINE 20MG TABLET PO SCH ×2 (09:04→21:16)
[2021-01-25] MEDS: ZINC SULFATE 220 MG ( 50 ) CAPSULE PO SCH (09:04)
[2021-01-25] MEDS: MEROPENEM 1,000 MG in SODIUM CHLORIDE 0.9% 100 ML IV SCH ×2 (09:05→21:16)
[2021-01-25] MEDS: VANCOMYCIN 1 G PREMIX 200 ML IV SCH (12:08)
[2021-01-25 15:18] LABS: BG BASE EXCESS 2.7 mmol/L (-2.0-2.0); BG CARBOXYHEMOGLOBIN 0.3 % (0.5-1.5); BG DEOXYHEMOGLOBIN 1.8 % (0.0-5.0); BG HCO3 ACT 26.1 mmol/L (22.0-26.0); BG METHEMOGLOBIN 0.2 % (0.0-1.5); BG OXYGEN SATURATION 98.2 % (92.0-98.5); BG OXYHEMOGLOBIN 97.7 % (94.0-97.0); BG PCO2 35.1 mmHg (35.0-45.0); BG PH 7.489 (7.350-7.450); BG PO2 133.5 mmHg (75.0-100.0); BG SAMPLE SITE RIGHT RADIAL; BG TOTAL HEMOGLOBIN 8.7 g/dL (12.0-18.0); BG VENT MODE VENT - CPAP
[2021-01-25] MEDS: DEXT 5%/0.45% NACL 1000ML 1,000 ML IV SCH (17:02)
[2021-01-25 19:40] LABS: PLATELET ESTIMATE NORMAL
[2021-01-25] MEDS: ATORVASTATIN CALCIUM 10MG TABLET PO SCH (21:16)
[2021-01-26] VITALS (47 sets, daily range): BP systolic 117–179; BP diastolic 64–94
[2021-01-26] MEDS: IPRATROPIUM/ALBUTEROL 0.5-3(2.5)MG/3ML NEB HHN SCH ×5 (03:38→21:28)
[2021-01-26 05:43] LABS: CHLORIDE 109 mEq/L (98-107)
[2021-01-26] MEDS: LEVOTHYROXINE SODIUM 137MCG TABLET PO SCH (06:23)
[2021-01-26] MEDS: INSULIN LISPRO 100 UNITS/ML SUBCUT SCH ×4 (06:24→21:00)
[2021-01-26] MEDS: BLOOD SUGAR DIAGNOSTIC STRIP TEST SCH ×4 (06:24→21:21)
[2021-01-26] MEDS: ENOXAPARIN 80MG/0.8ML SYR SUBCUT SCH ×2 (06:24→18:24)
[2021-01-26] MEDS: ZINC SULFATE 220 MG ( 50 ) CAPSULE PO SCH (08:48)
[2021-01-26] MEDS: AMLODIPINE 10MG TABLET PO SCH (08:48)
[2021-01-26] MEDS: CHOLECALCIFEROL (D3) 1000 UNIT TABLET PO SCH (08:48)
[2021-01-26] MEDS: MEROPENEM 1,000 MG in SODIUM CHLORIDE 0.9% 100 ML IV SCH ×2 (08:48→21:20)
[2021-01-26] MEDS: DOCUSATE SODIUM SUGAR FREE 100MG/10ML UDC NG SCH (08:48)
[2021-01-26] MEDS: ASCORBIC ACID 500 MG TABLET PO SCH ×2 (08:48→21:20)
[2021-01-26] MEDS: FAMOTIDINE 20MG TABLET PO SCH ×2 (08:48→21:20)
[2021-01-26] MEDS: DEXT 5%/0.45% NACL 1000ML 1,000 ML IV SCH (08:49)
[2021-01-26 09:55] LABS: BG BASE EXCESS 2.6 mmol/L (-2.0-2.0); BG CARBOXYHEMOGLOBIN 0.3 % (0.5-1.5); BG CPAP (cmH2O) 0 cm(H2O); BG DEOXYHEMOGLOBIN 1.5 % (0.0-5.0); BG FRACTION INSPIRED OXYGEN 35; BG HCO3 ACT 25.5 mmol/L (22.0-26.0); BG METHEMOGLOBIN 0.3 % (0.0-1.5); BG OXYGEN SATURATION 98.5 % (92.0-98.5); BG OXYHEMOGLOBIN 97.9 % (94.0-97.0); BG PCO2 32.5 mmHg (35.0-45.0); BG PH 7.513 (7.350-7.450); BG PO2 142.8 mmHg (75.0-100.0); BG SAMPLE SITE RIGHT RADIAL; BG TOTAL HEMOGLOBIN 8.6 g/dL (12.0-18.0); BG VENT MODE VENT - CPAP
[2021-01-26] MEDS: VANCOMYCIN 1 G PREMIX 200 ML IV SCH (13:37)
[2021-01-26] MEDS: ATORVASTATIN CALCIUM 10MG TABLET PO SCH (21:20)
[2021-01-27] VITALS (39 sets, daily range): BP systolic 118–172; BP diastolic 66–90
[2021-01-27] MEDS: IPRATROPIUM/ALBUTEROL 0.5-3(2.5)MG/3ML NEB HHN SCH ×6 (00:53→20:42)
[2021-01-27] MEDS: CLONIDINE 0.1MG TABLET PO PRN (01:08)
[2021-01-27] MEDS: DEXT 5%/0.45% NACL 1000ML 1,000 ML IV SCH ×2 (05:22→17:15)
[2021-01-27] MEDS: LEVOTHYROXINE SODIUM 137MCG TABLET PO SCH (06:04)
[2021-01-27] MEDS: ENOXAPARIN 80MG/0.8ML SYR SUBCUT SCH ×2 (06:04→18:07)
[2021-01-27] MEDS: INSULIN LISPRO 100 UNITS/ML SUBCUT SCH ×5 (06:06→20:38)
[2021-01-27] MEDS: BLOOD SUGAR DIAGNOSTIC STRIP TEST SCH ×5 (06:09→20:20)
[2021-01-27 06:18] LABS: BASOPHILS % 0.4 % (0.0-2.0); EOSINOPHILS % 2.6 % (0.0-5.0); HEMATOCRIT. 26.1 % (42.0-52.0); LYMPHOCYTES % 18.3 % (20.0-50.0); MEAN CORPUSCULAR HEMOGLOBIN 30.4 pg (28.0-32.0); MONOCYTES % 8.4 % (2.0-8.0); NEUTROPHILS % 70.3 % (40.0-76.0); PLATELET 279 x1000/uL (130-400); RED BLOOD CELL COUNT 2.96 mill/uL (4.7-6.1)
[2021-01-27 06:23] LABS: CHLORIDE 107 mEq/L (98-107)
[2021-01-27] MEDS: ZINC SULFATE 220 MG ( 50 ) CAPSULE PO SCH (09:02)
[2021-01-27] MEDS: AMLODIPINE 10MG TABLET PO SCH (09:02)
[2021-01-27] MEDS: MEROPENEM 1,000 MG in SODIUM CHLORIDE 0.9% 100 ML IV SCH ×2 (09:02→20:03)
[2021-01-27] MEDS: FAMOTIDINE 20MG TABLET PO SCH ×2 (09:03→20:03)
[2021-01-27] MEDS: CHOLECALCIFEROL (D3) 1000 UNIT TABLET PO SCH (09:03)
[2021-01-27] MEDS: ASCORBIC ACID 500 MG TABLET PO SCH ×2 (09:03→20:03)
[2021-01-27] MEDS: DOCUSATE SODIUM SUGAR FREE 100MG/10ML UDC NG SCH (09:04)
[2021-01-27] MEDS: VANCOMYCIN 1 G PREMIX 200 ML IV SCH (11:17)
[2021-01-27] MEDS ORDERED: KCL 20MEQ/100ML PREMIX 100 ML IV NR (12:30)
[2021-01-27] MEDS: ATORVASTATIN CALCIUM 10MG TABLET PO SCH (20:03)
[2021-01-28] VITALS (11 sets, daily range): BP systolic 115–137; BP diastolic 60–77
[2021-01-28] MEDS: IPRATROPIUM/ALBUTEROL 0.5-3(2.5)MG/3ML NEB HHN SCH ×6 (00:22→20:34)
[2021-01-28] MEDS: ENOXAPARIN 80MG/0.8ML SYR SUBCUT SCH ×2 (06:04→18:29)
[2021-01-28] MEDS: BLOOD SUGAR DIAGNOSTIC STRIP TEST SCH ×4 (07:27→20:02)
[2021-01-28] MEDS: ZINC SULFATE 220 MG ( 50 ) CAPSULE PO SCH (08:37)
[2021-01-28] MEDS: LEVOTHYROXINE SODIUM 137MCG TABLET PO SCH (08:37)
[2021-01-28] MEDS: FAMOTIDINE 20MG TABLET PO SCH ×2 (08:37→20:01)
[2021-01-28] MEDS: CHOLECALCIFEROL (D3) 1000 UNIT TABLET PO SCH (08:37)
[2021-01-28] MEDS: AMLODIPINE 10MG TABLET PO SCH (08:37)
[2021-01-28] MEDS: DOCUSATE SODIUM 100MG CAPSULE PO PRN (08:38)
[2021-01-28] MEDS: ASCORBIC ACID 500 MG TABLET PO SCH ×2 (08:38→20:01)
[2021-01-28] MEDS: MEROPENEM 1,000 MG in SODIUM CHLORIDE 0.9% 100 ML IV SCH ×2 (08:39→20:01)
[2021-01-28] MEDS: INSULIN LISPRO 100 UNITS/ML SUBCUT SCH ×4 (08:41→20:08)
[2021-01-28] MEDS: DOCUSATE SODIUM SUGAR FREE 100MG/10ML UDC NG SCH (08:48)
[2021-01-28] MEDS: DEXT 5%/0.45% NACL 1000ML 1,000 ML IV SCH (09:12)
[2021-01-28] MEDS: VANCOMYCIN 1 G PREMIX 200 ML IV SCH (12:31)
[2021-01-28] MEDS: GUAIFENESIN 200MG/10ML SUGAR FREE UDC PO PRN (13:04)
[2021-01-28] MEDS: ONDANSETRON HCL 4MG/2ML INJ IV PRN (13:05)
[2021-01-28 15:29] LABS: CHLORIDE 105 mEq/L (98-107)
[2021-01-28] MEDS: ATORVASTATIN CALCIUM 10MG TABLET PO SCH (20:01)
[2021-01-29] VITALS (12 sets, daily range): BP systolic 120–151; BP diastolic 74–96
[2021-01-29] MEDS: DEXT 5%/0.45% NACL 1000ML 1,000 ML IV SCH ×2 (00:37→18:22)
[2021-01-29] MEDS: IPRATROPIUM/ALBUTEROL 0.5-3(2.5)MG/3ML NEB HHN SCH ×6 (02:20→20:31)
[2021-01-29] MEDS: ENOXAPARIN 80MG/0.8ML SYR SUBCUT SCH ×2 (06:00→18:54)
[2021-01-29] MEDS: BLOOD SUGAR DIAGNOSTIC STRIP TEST SCH ×4 (07:28→20:41)
[2021-01-29] MEDS: LEVOTHYROXINE SODIUM 137MCG TABLET PO SCH (07:47)
[2021-01-29] MEDS: INSULIN LISPRO 100 UNITS/ML SUBCUT SCH ×5 (07:54→20:01)
[2021-01-29] MEDS: ASCORBIC ACID 500 MG TABLET PO SCH ×2 (08:00→20:02)
[2021-01-29] MEDS: DOCUSATE SODIUM 100MG CAPSULE PO PRN (08:00)
[2021-01-29] MEDS: MEROPENEM 1,000 MG in SODIUM CHLORIDE 0.9% 100 ML IV SCH ×2 (08:00→20:01)
[2021-01-29] MEDS: AMLODIPINE 10MG TABLET PO SCH (08:00)
[2021-01-29] MEDS: CHOLECALCIFEROL (D3) 1000 UNIT TABLET PO SCH (08:00)
[2021-01-29] MEDS: ZINC SULFATE 220 MG ( 50 ) CAPSULE PO SCH (08:00)
[2021-01-29] MEDS: FAMOTIDINE 20MG TABLET PO SCH ×2 (08:09→20:02)
[2021-01-29] MEDS: DOCUSATE SODIUM SUGAR FREE 100MG/10ML UDC NG SCH (08:15)
[2021-01-29] MEDS: VANCOMYCIN 1 G PREMIX 200 ML IV SCH (13:10)
[2021-01-29] MEDS: ATORVASTATIN CALCIUM 10MG TABLET PO SCH (20:02)
[2021-01-30] VITALS (11 sets, daily range): BP systolic 111–156; BP diastolic 64–89
[2021-01-30] MEDS: IPRATROPIUM/ALBUTEROL 0.5-3(2.5)MG/3ML NEB HHN SCH ×6 (00:20→20:47)
[2021-01-30] MEDS: BLOOD SUGAR DIAGNOSTIC STRIP TEST SCH ×3 (05:35→18:30)
[2021-01-30] MEDS: INSULIN LISPRO 100 UNITS/ML SUBCUT SCH ×3 (05:37→18:30)
[2021-01-30] MEDS: ENOXAPARIN 80MG/0.8ML SYR SUBCUT SCH ×2 (06:12→18:30)
[2021-01-30] MEDS: DOCUSATE SODIUM SUGAR FREE 100MG/10ML UDC NG SCH (09:00)
[2021-01-30] MEDS: LEVOTHYROXINE SODIUM 137MCG TABLET PO SCH (09:12)
[2021-01-30] MEDS: CHOLECALCIFEROL (D3) 1000 UNIT TABLET PO SCH (09:13)
[2021-01-30] MEDS: DOCUSATE SODIUM 100MG CAPSULE PO PRN ×2 (09:14→09:16)
[2021-01-30] MEDS: MEROPENEM 1,000 MG in SODIUM CHLORIDE 0.9% 100 ML IV SCH ×2 (09:14→20:29)
[2021-01-30] MEDS: ZINC SULFATE 220 MG ( 50 ) CAPSULE PO SCH (09:14)
[2021-01-30] MEDS: ASCORBIC ACID 500 MG TABLET PO SCH ×2 (09:14→20:29)
[2021-01-30] MEDS: FAMOTIDINE 20MG TABLET PO SCH ×2 (09:14→20:29)
[2021-01-30] MEDS: AMLODIPINE 10MG TABLET PO SCH (09:14)
[2021-01-30] MEDS: VANCOMYCIN 1 G PREMIX 200 ML IV SCH (12:35)
[2021-01-30] MEDS: DEXT 5%/0.45% NACL 1000ML 1,000 ML IV SCH (12:36)
[2021-01-30] MEDS: ACETAMINOPHEN 325MG TABLET PO PRN (14:44)
[2021-01-30] MEDS: ACETYLCYSTEINE 100MG/ML 10% VIAL 4ML INH SCH (16:20)
[2021-01-30] MEDS: ATORVASTATIN CALCIUM 10MG TABLET PO SCH (20:29)
[2021-01-31] VITALS (12 sets, daily range): BP systolic 127–145; BP diastolic 73–93
[2021-01-31] MEDS: BLOOD SUGAR DIAGNOSTIC STRIP TEST SCH ×4 (00:04→17:30)
[2021-01-31] MEDS: ACETYLCYSTEINE 100MG/ML 10% VIAL 4ML INH SCH ×3 (00:43→16:56)
[2021-01-31] MEDS: IPRATROPIUM/ALBUTEROL 0.5-3(2.5)MG/3ML NEB HHN SCH ×6 (00:43→21:24)
[2021-01-31] MEDS: DEXT 5%/0.45% NACL 1000ML 1,000 ML IV SCH ×2 (05:43→21:32)
[2021-01-31] MEDS: ENOXAPARIN 80MG/0.8ML SYR SUBCUT SCH ×2 (05:44→17:49)
[2021-01-31] MEDS: INSULIN LISPRO 100 UNITS/ML SUBCUT SCH ×4 (05:45→17:50)
[2021-01-31 06:15] LABS: BASOPHILS % 0.4 % (0.0-2.0); HEMATOCRIT. 25.6 % (42.0-52.0); HEMOGLOBIN. 8.5 g/dL (14.0-18.0); LYMPHOCYTES % 9.2 % (20.0-50.0); MEAN CORPUSCULAR HEMOGLOBIN 29.8 pg (28.0-32.0); MEAN CORPUSCULAR VOLUME 89.1 fL (80.0-94.0); MEAN PLATELET VOLUME 7.9 fl (7.4-10.4); MONOCYTES % 7.9 % (2.0-8.0); NEUTROPHILS % 79.5 % (40.0-76.0); PLATELET 410 x1000/uL (130-400); RED BLOOD CELL COUNT 2.87 mill/uL (4.7-6.1); RED CELL DISTRIBUTION WIDTH 14.1 % (11.6-14.6)
[2021-01-31 06:20] LABS: CHLORIDE 102 mEq/L (98-107)
[2021-01-31] MEDS: LEVOTHYROXINE SODIUM 137MCG TABLET PO SCH (08:09)
[2021-01-31] MEDS: MEROPENEM 1,000 MG in SODIUM CHLORIDE 0.9% 100 ML IV SCH ×2 (09:31→21:29)
[2021-01-31] MEDS: ZINC SULFATE 220 MG ( 50 ) CAPSULE PO SCH (09:31)
[2021-01-31] MEDS: FAMOTIDINE 20MG TABLET PO SCH ×2 (09:31→21:28)
[2021-01-31] MEDS: CHOLECALCIFEROL (D3) 1000 UNIT TABLET PO SCH (09:31)
[2021-01-31] MEDS: DOCUSATE SODIUM 100MG CAPSULE PO PRN (09:31)
[2021-01-31] MEDS: AMLODIPINE 10MG TABLET PO SCH (09:31)
[2021-01-31] MEDS: ASCORBIC ACID 500 MG TABLET PO SCH ×2 (09:43→21:28)
[2021-01-31] MEDS: DOCUSATE SODIUM SUGAR FREE 100MG/10ML UDC NG SCH (10:11)
[2021-01-31] MEDS: VANCOMYCIN 1 G PREMIX 200 ML IV SCH (13:00)
[2021-01-31] MEDS: ATORVASTATIN CALCIUM 10MG TABLET PO SCH (21:29)
[2021-02-01] VITALS (12 sets, daily range): BP systolic 107–148; BP diastolic 67–86
[2021-02-01] MEDS: IPRATROPIUM/ALBUTEROL 0.5-3(2.5)MG/3ML NEB HHN SCH ×6 (00:30→20:47)
[2021-02-01] MEDS: ACETYLCYSTEINE 100MG/ML 10% VIAL 4ML INH SCH ×3 (00:30→15:46)
[2021-02-01] MEDS: GUAIFENESIN 200MG/10ML SUGAR FREE UDC PO PRN (02:30)
[2021-02-01] MEDS: ENOXAPARIN 80MG/0.8ML SYR SUBCUT SCH ×2 (05:11→17:42)
[2021-02-01] MEDS: INSULIN LISPRO 100 UNITS/ML SUBCUT SCH ×4 (05:13→17:42)
[2021-02-01] MEDS: BLOOD SUGAR DIAGNOSTIC STRIP TEST SCH ×4 (05:14→17:36)
[2021-02-01] MEDS: CHOLECALCIFEROL (D3) 1000 UNIT TABLET PO SCH (09:21)
[2021-02-01] MEDS: ZINC SULFATE 220 MG ( 50 ) CAPSULE PO SCH (09:21)
[2021-02-01] MEDS: AMLODIPINE 10MG TABLET PO SCH (09:21)
[2021-02-01] MEDS: ASCORBIC ACID 500 MG TABLET PO SCH ×2 (09:22→21:44)
[2021-02-01] MEDS: FAMOTIDINE 20MG TABLET PO SCH ×2 (09:22→21:44)
[2021-02-01] MEDS: MEROPENEM 1,000 MG in SODIUM CHLORIDE 0.9% 100 ML IV SCH (09:25)
[2021-02-01] MEDS: LEVOTHYROXINE SODIUM 137MCG TABLET PO SCH (09:26)
[2021-02-01] MEDS: DOCUSATE SODIUM SUGAR FREE 100MG/10ML UDC NG SCH (09:31)
[2021-02-01] MEDS: VANCOMYCIN 1 G PREMIX 200 ML IV SCH (12:19)
[2021-02-01] MEDS: PIPERACILLIN/TAZOBACTAM 3.375G in DEXT 5% WATER 50ML IV SCH ×2 (15:16→22:48)
[2021-02-01] MEDS: DEXT 5%/0.45% NACL 1000ML 1,000 ML IV SCH (15:16)
[2021-02-01] MEDS: ATORVASTATIN CALCIUM 10MG TABLET PO SCH (21:44)
[2021-02-02] VITALS (12 sets, daily range): BP systolic 115–144; BP diastolic 72–83
[2021-02-02] MEDS: IPRATROPIUM/ALBUTEROL 0.5-3(2.5)MG/3ML NEB HHN SCH ×7 (00:30→23:58)
[2021-02-02] MEDS: ACETYLCYSTEINE 100MG/ML 10% VIAL 4ML INH SCH ×4 (00:30→23:58)
[2021-02-02] MEDS: BLOOD SUGAR DIAGNOSTIC STRIP TEST SCH ×4 (00:41→17:51)
[2021-02-02] MEDS: GUAIFENESIN 200MG/10ML SUGAR FREE UDC PO PRN (04:49)
[2021-02-02] MEDS: PIPERACILLIN/TAZOBACTAM 3.375G in DEXT 5% WATER 50ML IV SCH ×3 (06:46→23:15)
[2021-02-02] MEDS: ENOXAPARIN 80MG/0.8ML SYR SUBCUT SCH ×2 (06:47→17:50)
[2021-02-02] MEDS: INSULIN LISPRO 100 UNITS/ML SUBCUT SCH ×4 (06:48→17:51)
[2021-02-02] MEDS: FAMOTIDINE 20MG TABLET PO SCH ×2 (09:36→21:05)
[2021-02-02] MEDS: ASCORBIC ACID 500 MG TABLET PO SCH ×2 (09:36→21:05)
[2021-02-02] MEDS: ZINC SULFATE 220 MG ( 50 ) CAPSULE PO SCH (09:36)
[2021-02-02] MEDS: LEVOTHYROXINE SODIUM 137MCG TABLET PO SCH (09:36)
[2021-02-02] MEDS: CHOLECALCIFEROL (D3) 1000 UNIT TABLET PO SCH (09:37)
[2021-02-02] MEDS: DOCUSATE SODIUM SUGAR FREE 100MG/10ML UDC NG SCH (09:42)
[2021-02-02] MEDS: AMLODIPINE 10MG TABLET PO SCH (09:43)
[2021-02-02] MEDS: DEXT 5%/0.45% NACL 1000ML 1,000 ML IV SCH (11:00)
[2021-02-02] MEDS: ATORVASTATIN CALCIUM 10MG TABLET PO SCH (21:05)
[2021-02-03] VITALS (12 sets, daily range): BP systolic 110–159; BP diastolic 71–85
[2021-02-03] MEDS: BLOOD SUGAR DIAGNOSTIC STRIP TEST SCH ×4 (00:16→17:48)
[2021-02-03] MEDS: INSULIN LISPRO 100 UNITS/ML SUBCUT SCH ×4 (00:24→17:46)
[2021-02-03] MEDS: DEXT 5%/0.45% NACL 1000ML 1,000 ML IV SCH ×2 (03:45→15:45)
[2021-02-03] MEDS: IPRATROPIUM/ALBUTEROL 0.5-3(2.5)MG/3ML NEB HHN SCH ×4 (05:04→20:38)
[2021-02-03] MEDS: ENOXAPARIN 80MG/0.8ML SYR SUBCUT SCH (05:59)
[2021-02-03] MEDS: PIPERACILLIN/TAZOBACTAM 3.375G in DEXT 5% WATER 50ML IV SCH ×3 (08:37→22:31)
[2021-02-03] MEDS: LEVOTHYROXINE SODIUM 137MCG TABLET PO SCH (08:37)
[2021-02-03] MEDS: ASCORBIC ACID 500 MG TABLET PO SCH ×2 (08:38→20:51)
[2021-02-03] MEDS: AMLODIPINE 10MG TABLET PO SCH (08:38)
[2021-02-03] MEDS: CHOLECALCIFEROL (D3) 1000 UNIT TABLET PO SCH (08:38)
[2021-02-03] MEDS: ZINC SULFATE 220 MG ( 50 ) CAPSULE PO SCH (08:38)
[2021-02-03] MEDS: DOCUSATE SODIUM SUGAR FREE 100MG/10ML UDC NG SCH (08:38)
[2021-02-03] MEDS: FAMOTIDINE 20MG TABLET PO SCH ×2 (08:38→20:51)
[2021-02-03] MEDS: ACETYLCYSTEINE 100MG/ML 10% VIAL 4ML INH SCH (08:52)
[2021-02-03] MEDS: GUAIFENESIN 200MG/10ML SUGAR FREE UDC PO PRN ×2 (18:21→22:31)
[2021-02-03] MEDS: ACETAMINOPHEN 325MG TABLET PO PRN (18:21)
[2021-02-03] MEDS: ATORVASTATIN CALCIUM 10MG TABLET PO SCH (20:51)
[2021-02-04] VITALS (12 sets, daily range): BP systolic 124–173; BP diastolic 79–95
[2021-02-04] MEDS: ACETYLCYSTEINE 100MG/ML 10% VIAL 4ML INH SCH ×2 (00:37→09:11)
[2021-02-04] MEDS: IPRATROPIUM/ALBUTEROL 0.5-3(2.5)MG/3ML NEB HHN SCH ×6 (00:38→20:11)
[2021-02-04] MEDS: BLOOD SUGAR DIAGNOSTIC STRIP TEST SCH ×5 (00:45→22:53)
[2021-02-04] MEDS: INSULIN LISPRO 100 UNITS/ML SUBCUT SCH ×5 (01:07→23:22)
[2021-02-04 05:36] LABS: BASOPHILS % 0.3 % (0.0-2.0); EOSINOPHILS % 3.3 % (0.0-5.0); HEMATOCRIT. 26.7 % (42.0-52.0); HEMOGLOBIN. 9.1 g/dL (14.0-18.0); LYMPHOCYTES % 11.8 % (20.0-50.0); MEAN CORPUSCULAR HEMOGLOBIN 29.8 pg (28.0-32.0); MEAN PLATELET VOLUME 7.7 fl (7.4-10.4); MONOCYTES % 7.8 % (2.0-8.0); NEUTROPHILS % 76.8 % (40.0-76.0); PLATELET 442 x1000/uL (130-400); RED BLOOD CELL COUNT 3.04 mill/uL (4.7-6.1); RED CELL DISTRIBUTION WIDTH 14.2 % (11.6-14.6)
[2021-02-04 05:37] LABS: PROTHROMBIN TIME 11.1 sec (9.6-11.0)
[2021-02-04 05:47] LABS: CHLORIDE 104 mEq/L (98-107)
[2021-02-04] MEDS: LEVOTHYROXINE SODIUM 137MCG TABLET PO SCH ×2 (07:30→08:31)
[2021-02-04] MEDS: DOCUSATE SODIUM SUGAR FREE 100MG/10ML UDC NG SCH ×2 (08:31→08:41)
[2021-02-04] MEDS: DEXT 5%/0.45% NACL 1000ML 1,000 ML IV SCH ×2 (08:31→23:22)
[2021-02-04] MEDS: PIPERACILLIN/TAZOBACTAM 3.375G in DEXT 5% WATER 50ML IV SCH ×3 (08:31→22:53)
[2021-02-04] MEDS: ZINC SULFATE 220 MG ( 50 ) CAPSULE PO SCH ×2 (08:31→08:41)
[2021-02-04] MEDS: ASCORBIC ACID 500 MG TABLET PO SCH ×3 (08:32→20:45)
[2021-02-04] MEDS: FAMOTIDINE 20MG TABLET PO SCH ×3 (08:32→20:42)
[2021-02-04] MEDS: CHOLECALCIFEROL (D3) 1000 UNIT TABLET PO SCH ×2 (08:32→08:41)
[2021-02-04] MEDS: AMLODIPINE 10MG TABLET PO SCH ×2 (08:35→08:41)
[2021-02-04] MEDS: ATORVASTATIN CALCIUM 10MG TABLET PO SCH (20:42)
[2021-02-04] MEDS: ACETAMINOPHEN 325MG TABLET PO PRN (23:22)
[2021-02-05] VITALS (11 sets, daily range): BP systolic 132–171; BP diastolic 78–110
[2021-02-05] MEDS: IPRATROPIUM/ALBUTEROL 0.5-3(2.5)MG/3ML NEB HHN SCH ×5 (00:49→21:03)
[2021-02-05] MEDS: ONDANSETRON HCL 4MG/2ML INJ IV PRN (02:44)
[2021-02-05 05:28] LABS: BASOPHILS % 0.3 % (0.0-2.0); EOSINOPHILS % 3.3 % (0.0-5.0); HEMATOCRIT. 27.4 % (42.0-52.0); HEMOGLOBIN. 9.2 g/dL (14.0-18.0); LYMPHOCYTES % 8.9 % (20.0-50.0); MEAN CORPUSCULAR HEMOGLOBIN 30.2 pg (28.0-32.0); MEAN CORPUSCULAR VOLUME 89.4 fL (80.0-94.0); MEAN PLATELET VOLUME 7.4 fl (7.4-10.4); MONOCYTES % 8.6 % (2.0-8.0); NEUTROPHILS % 78.9 % (40.0-76.0); PLATELET 437 x1000/uL (130-400); RED BLOOD CELL COUNT 3.07 mill/uL (4.7-6.1); RED CELL DISTRIBUTION WIDTH 14.2 % (11.6-14.6)
[2021-02-05 05:55] LABS: CHLORIDE 102 mEq/L (98-107)
[2021-02-05] MEDS: INSULIN LISPRO 100 UNITS/ML SUBCUT SCH ×4 (06:00→23:45)
[2021-02-05 06:01] LABS: INR 1.1; PROTHROMBIN TIME 11.3 sec (9.6-11.0)
[2021-02-05] MEDS: BLOOD SUGAR DIAGNOSTIC STRIP TEST SCH ×4 (06:17→23:44)
[2021-02-05] MEDS: CLONIDINE 0.1MG TABLET PO PRN ×2 (06:20→18:34)
[2021-02-05] MEDS: PIPERACILLIN/TAZOBACTAM 3.375G in DEXT 5% WATER 50ML IV SCH ×3 (06:20→22:55)
[2021-02-05] MEDS: LEVOTHYROXINE SODIUM 137MCG TABLET PO SCH (07:30)
[2021-02-05] MEDS: AMLODIPINE 10MG TABLET PO SCH (08:23)
[2021-02-05] MEDS: DOCUSATE SODIUM SUGAR FREE 100MG/10ML UDC NG SCH (08:23)
[2021-02-05] MEDS: ZINC SULFATE 220 MG ( 50 ) CAPSULE PO SCH (08:23)
[2021-02-05] MEDS: FAMOTIDINE 20MG TABLET PO SCH ×2 (08:23→20:32)
[2021-02-05] MEDS: CHOLECALCIFEROL (D3) 1000 UNIT TABLET PO SCH (08:24)
[2021-02-05] MEDS: ASCORBIC ACID 500 MG TABLET PO SCH ×2 (08:24→20:31)
[2021-02-05] MEDS: ACETYLCYSTEINE 100MG/ML 10% VIAL 4ML INH SCH (08:38)
[2021-02-05] MEDS ORDERED: MIDAZOLAM HCL 5 MG/5 ML VIAL IV PRN (12:20)
[2021-02-05] MEDS ORDERED: MIDAZOLAM HCL 5 MG/5 ML VIAL ONE (12:23)
[2021-02-05] MEDS ORDERED: FENTANYL CITRATE/PF 50MCG/ML 2ML VIAL ONE (12:23)
[2021-02-05] MEDS: DEXT 5%/0.45% NACL 1000ML 1,000 ML IV SCH (17:01)
[2021-02-05] MEDS: DEXT 5%/0.9% NACL 1,000 ML IV SCH (17:10)
[2021-02-05] MEDS: ATORVASTATIN CALCIUM 10MG TABLET PO SCH (20:32)
[2021-02-05] MEDS: METOCLOPRAMIDE HCL 10MG/2ML VIAL IV SCH (23:00)
[2021-02-06] VITALS (12 sets, daily range): BP systolic 132–156; BP diastolic 71–93
[2021-02-06] MEDS: IPRATROPIUM/ALBUTEROL 0.5-3(2.5)MG/3ML NEB HHN SCH ×6 (00:56→21:23)
[2021-02-06] MEDS: BLOOD SUGAR DIAGNOSTIC STRIP TEST SCH ×4 (05:14→23:12)
[2021-02-06] MEDS: METOCLOPRAMIDE HCL 10MG/2ML VIAL IV SCH ×4 (05:21→23:12)
[2021-02-06] MEDS: INSULIN LISPRO 100 UNITS/ML SUBCUT SCH ×4 (05:23→23:28)
[2021-02-06] MEDS: PIPERACILLIN/TAZOBACTAM 3.375G in DEXT 5% WATER 50ML IV SCH ×2 (06:13→14:12)
[2021-02-06] MEDS: FAMOTIDINE 20MG TABLET PO SCH ×2 (08:11→20:33)
[2021-02-06] MEDS: CHOLECALCIFEROL (D3) 1000 UNIT TABLET PO SCH (08:11)
[2021-02-06] MEDS: ZINC SULFATE 220 MG ( 50 ) CAPSULE PO SCH (08:11)
[2021-02-06] MEDS: ASCORBIC ACID 500 MG TABLET PO SCH ×2 (08:11→20:33)
[2021-02-06] MEDS: AMLODIPINE 10MG TABLET PO SCH (08:12)
[2021-02-06] MEDS: DOCUSATE SODIUM SUGAR FREE 100MG/10ML UDC NG SCH (08:13)
[2021-02-06] MEDS: LEVOTHYROXINE SODIUM 137MCG TABLET PO SCH (08:14)
[2021-02-06] MEDS: DEXT 5%/0.9% NACL 1,000 ML IV SCH (11:31)
[2021-02-06] MEDS: ENOXAPARIN 80MG/0.8ML SYR SUBCUT SCH (18:32)
[2021-02-06] MEDS: ATORVASTATIN CALCIUM 10MG TABLET PO SCH (20:33)
[2021-02-07] VITALS (12 sets, daily range): BP systolic 106–167; BP diastolic 66–99
[2021-02-07] MEDS: IPRATROPIUM/ALBUTEROL 0.5-3(2.5)MG/3ML NEB HHN SCH ×6 (00:21→20:58)
[2021-02-07] MEDS: BLOOD SUGAR DIAGNOSTIC STRIP TEST SCH ×4 (05:28→23:49)
[2021-02-07] MEDS: ENOXAPARIN 80MG/0.8ML SYR SUBCUT SCH ×2 (05:28→18:00)
[2021-02-07] MEDS: METOCLOPRAMIDE HCL 10MG/2ML VIAL IV SCH ×4 (05:28→23:49)
[2021-02-07] MEDS: INSULIN LISPRO 100 UNITS/ML SUBCUT SCH ×4 (05:31→23:50)
[2021-02-07] MEDS: DEXT 5%/0.9% NACL 1,000 ML IV SCH (08:13)
[2021-02-07] MEDS: DOCUSATE SODIUM 100MG CAPSULE PO PRN (08:13)
[2021-02-07] MEDS: ZINC SULFATE 220 MG ( 50 ) CAPSULE PO SCH (08:13)
[2021-02-07] MEDS: AMLODIPINE 10MG TABLET PO SCH (08:13)
[2021-02-07] MEDS: FAMOTIDINE 20MG TABLET PO SCH ×2 (08:13→21:39)
[2021-02-07] MEDS: ASCORBIC ACID 500 MG TABLET PO SCH ×2 (08:13→21:38)
[2021-02-07] MEDS: CHOLECALCIFEROL (D3) 1000 UNIT TABLET PO SCH (08:13)
[2021-02-07] MEDS: LEVOTHYROXINE SODIUM 137MCG TABLET PO SCH (08:13)
[2021-02-07] MEDS: DOCUSATE SODIUM SUGAR FREE 100MG/10ML UDC NG SCH (08:22)
[2021-02-07] MEDS ORDERED: RACEPINEPHRINE 2.25% 0.5ML NEB VIAL HHN NR (11:00)
[2021-02-07 12:57] LABS: BG BASE EXCESS -0.6 mmol/L (-2.0-2.0); BG CARBOXYHEMOGLOBIN 0.1 % (0.5-1.5); BG DEOXYHEMOGLOBIN 1.7 % (0.0-5.0); BG FRACTION INSPIRED OXYGEN 60; BG HCO3 ACT 23.2 mmol/L (22.0-26.0); BG METHEMOGLOBIN 0.2 % (0.0-1.5); BG OXYGEN SATURATION 98.3 % (92.0-98.5); BG PCO2 34.8 mmHg (35.0-45.0); BG PH 7.442 (7.350-7.450); BG PO2 131.6 mmHg (75.0-100.0); BG SAMPLE SITE RIGHT BRACHIAL; BG VENT MODE MASK - SIMPLE
[2021-02-07] MEDS: ATORVASTATIN CALCIUM 10MG TABLET PO SCH (21:39)
[2021-02-08] VITALS (9 sets, daily range): BP systolic 128–169; BP diastolic 71–94
[2021-02-08] MEDS: IPRATROPIUM/ALBUTEROL 0.5-3(2.5)MG/3ML NEB HHN SCH ×4 (01:14→11:41)
[2021-02-08] MEDS: DEXT 5%/0.9% NACL 1,000 ML IV SCH (04:22)
[2021-02-08] MEDS: METOCLOPRAMIDE HCL 10MG/2ML VIAL IV SCH (05:26)
[2021-02-08] MEDS: ENOXAPARIN 80MG/0.8ML SYR SUBCUT SCH (05:26)
[2021-02-08] MEDS: BLOOD SUGAR DIAGNOSTIC STRIP TEST SCH ×2 (05:27→12:52)
[2021-02-08] MEDS: INSULIN LISPRO 100 UNITS/ML SUBCUT SCH ×2 (05:57→12:52)
[2021-02-08] MEDS: CHOLECALCIFEROL (D3) 1000 UNIT TABLET PO SCH (09:03)
[2021-02-08] MEDS: FAMOTIDINE 20MG TABLET PO SCH (09:03)
[2021-02-08] MEDS: AMLODIPINE 10MG TABLET PO SCH (09:03)
[2021-02-08] MEDS: ASCORBIC ACID 500 MG TABLET PO SCH (09:03)
[2021-02-08] MEDS: ZINC SULFATE 220 MG ( 50 ) CAPSULE PO SCH (09:03)
[2021-02-08] MEDS: LEVOTHYROXINE SODIUM 137MCG TABLET PO SCH (09:03)
[2021-02-08] MEDS: DOCUSATE SODIUM SUGAR FREE 100MG/10ML UDC NG SCH (09:04)
[2021-02-08] MEDS: CLONIDINE 0.1MG TABLET PO PRN (10:13)
[2021-02-08] MEDS ORDERED: SORBITOL 70% SOLN 30ML PEG NR (13:15)
[2021-02-08] MEDS ORDERED: METOCLOPRAMIDE HCL 10MG/2ML VIAL IV SCH (18:00)
== END 2021-02-08 14:30 | disposition hospice, home (50) | DRG 870 ==
LOC: ER 10:32 → 7WST 14:46 → ENRESERV 21:29 → 5EST 01-17 14:47 → MICUNO 01-18 09:58 → 5EST 01-27 17:06
PROVIDERS: ADMIT Internal Medicine; ATTEND Internal Medicine
PROC: 5A09457 Assistance with Respiratory Ventilation, 24-96 Consecutive Hours, Continuous Positive Airway Pressure (ICD-10-PCS; 2021-01-15)
PROC: 05HY33Z Insertion of Infusion Device into Upper Vein, Percutaneous Approach (ICD-10-PCS; 2021-01-17)
PROC: B54MZZA Ultrasonography of Right Upper Extremity Veins, Guidance (ICD-10-PCS; 2021-01-17)
PROC: 0DB78ZX Excision of Stomach, Pylorus, Via Natural or Artificial Opening Endoscopic, Diagnostic (ICD-10-PCS; 2021-01-17)
PROC: 0DH63UZ Insertion of Feeding Device into Stomach, Percutaneous Approach (ICD-10-PCS; 2021-01-17)
PROC: 5A1955Z Respiratory Ventilation, Greater than 96 Consecutive Hours (ICD-10-PCS; principal; 2021-01-18)
PROC: 0BH17EZ Insertion of Endotracheal Airway into Trachea, Via Natural or Artificial Opening (ICD-10-PCS; 2021-01-18)
PROC: 30233N1 Transfusion of Nonautologous Red Blood Cells into Peripheral Vein, Percutaneous Approach (ICD-10-PCS; 2021-01-19)
DX: A41.9 Sepsis, unspecified organism (principal); L89.153 Pressure ulcer of sacral region, stage 3; I21.4 Non-ST elevation (NSTEMI) myocardial infarction; J96.01 Acute respiratory failure with hypoxia; G92 Toxic encephalopathy; J18.9 Pneumonia, unspecified organism; R65.21 Severe sepsis with septic shock; E43 Unspecified severe protein-calorie malnutrition; E11.52 Type 2 diabetes mellitus with diabetic peripheral angiopathy with gangrene; I31.3 Pericardial effusion (noninflammatory); N17.9 Acute kidney failure, unspecified; E87.2 Acidosis; L03.116 Cellulitis of left lower limb; I82.431 Acute embolism and thrombosis of right popliteal vein; I82.413 Acute embolism and thrombosis of femoral vein, bilateral; N39.0 Urinary tract infection, site not specified; E87.1 Hypo-osmolality and hyponatremia; K56.7 Ileus, unspecified; D63.8 Anemia in other chronic diseases classified elsewhere; E03.9 Hypothyroidism, unspecified; E83.51 Hypocalcemia; G20 Parkinson's disease; K29.30 Chronic superficial gastritis without bleeding; S81.802A Unspecified open wound, left lower leg, initial encounter; X58.XXXA Exposure to other specified factors, initial encounter; Z20.822 Contact with and (suspected) exposure to COVID-19; R62.7 Adult failure to thrive; I34.0 Nonrheumatic mitral (valve) insufficiency; I27.20 Pulmonary hypertension, unspecified; E87.5 Hyperkalemia; I50.9 Heart failure, unspecified; I11.0 Hypertensive heart disease with heart failure; H54.8 Legal blindness, as defined in USA; Z51.5 Encounter for palliative care; Z79.01 Long term (current) use of anticoagulants; R13.10 Dysphagia, unspecified; K56.41 Fecal impaction; Z79.4 Long term (current) use of insulin; Z78.9 Other specified health status; Z79.899 Other long term (current) drug therapy; Y93.89 Activity, other specified; Y92.89 Other specified places as the place of occurrence of the external cause; Y99.8 Other external cause status; Z68.23 Body mass index [BMI] 23.0-23.9, adult
CPT/HCPCS: 31500; 36415; 36600; 71045; 71275; 73590; 73630; 74018; 74176; 76770; 76937; 80048; 80053; 80202; 81003; 82040; 82270; 82375; 82550; 82553; 82607; 82746; 82805; 82962; 83036; 83540; 83550; 83605; 83735; 83880; 84100; 84134; 84145; 84439; 84443; 84478; 84484; 85014; 85018; 85025; 86850; 86900; 86920; 87070; 87106; 87426; 87635; 88305; 88312; 88313; 92610; 93005; 93306; 93923; 93970; 94003; 94640; 94660; 94667; 97162; 97164; 99291; A6261; C1725; J0696; J1650; J1815; J1940; J2185; J2250; J2270; J2405; J2543; J2704; J2765; J3010; J3370; J3480; J3490; J7030; J7040; J7042; J7050; J7060; J7608; P9016; Q9967